=== PATIENT | male | born 1990 | race Caucasian/White ===

== ENCOUNTER → 2017-11-20 | Outpatient (CLI) | payer OTHER | LOC: FIMAGING 09:20 | PROVIDERS: ATTEND Family Medicine Sports Medicine | DX: R10.33 Periumbilical pain (principal); K59.00 Constipation, unspecified ==

== ENCOUNTER → 2018-05-14 | Outpatient (CLI) | payer OTHER | LOC: FIMAGING 13:46 | PROVIDERS: ATTEND Family Medicine Sports Medicine | DX: M54.2 Cervicalgia (principal); M62.838 Other muscle spasm; M48.54XA Collapsed vertebra, not elsewhere classified, thoracic region, initial encounter for fracture ==